=== PATIENT | female | born 1940 | race Caucasian/White ===

== ENCOUNTER 2020-02-05 14:07 | Emergency (ER) | payer MEDICAID, SELFPAY ==
[~2020-02-05] VITALS: Ht 152.4 cm; Wt 81.6 kg
[2020-02-05 14:21] VITALS: Ht 152.4 cm; Wt 81.6 kg
[2020-02-05 16:48] VITALS: BP 129/74
== END 2020-02-05 16:48 | disposition home or self-care (01) ==
LOC: EDBD 14:07 → ED 14:07
DX: U07.1 COVID-19 (principal); I10 Essential (primary) hypertension
CPT/HCPCS: U0003

== ENCOUNTER 2020-02-12 13:32 | Emergency (ER) | payer MEDICAID, SELFPAY ==
[~2020-02-12] VITALS: Ht 160 cm; Wt 59.0 kg
[2020-02-12 13:47] VITALS: Ht 160 cm; Wt 59.0 kg
[2020-02-12 14:56] VITALS: BP 112/70
== END 2020-02-12 14:56 | disposition home or self-care (01) ==
LOC: ED 13:32
DX: U07.1 COVID-19 (principal); I10 Essential (primary) hypertension; Z90.49 Acquired absence of other specified parts of digestive tract